=== PATIENT | female | born 1965 | race Two or more races ===

== ENCOUNTER 2021-02-18 10:05 | Outpatient (CLI) | payer MEDICARE, OTHER | END 2021-02-18 23:59 | disposition home health service (06) | LOC: WOU 10:05 | PROVIDERS: ATTEND Surgery | DX: L89.894 Pressure ulcer of other site, stage 4 (principal); M62.3 Immobility syndrome (paraplegic); Z79.82 Long term (current) use of aspirin; I10 Essential (primary) hypertension | CPT/HCPCS: 11042 ==

== ENCOUNTER 2021-03-18 09:45 | Outpatient (CLI) | payer MEDICARE, OTHER ==
[2021-03-18] MEDS ORDERED: LIDOCAINE SOLN 4% 50 ML BOTTLE ONE (10:03)
== END 2021-03-18 23:59 | disposition home health service (06) ==
LOC: WOU 09:45
PROVIDERS: ATTEND Specialist
DX: L89.894 Pressure ulcer of other site, stage 4 (principal); G80.9 Cerebral palsy, unspecified; G40.909 Epilepsy, unspecified, not intractable, without status epilepticus; Z99.3 Dependence on wheelchair
CPT/HCPCS: 17250; A6209

== ENCOUNTER 2021-03-25 10:00 | Outpatient (CLI) | payer MEDICARE, OTHER | END 2021-03-25 23:59 | disposition home health service (06) | LOC: WOU 10:00 | PROVIDERS: ATTEND Specialist | DX: L89.894 Pressure ulcer of other site, stage 4 (principal); G40.309 Generalized idiopathic epilepsy and epileptic syndromes, not intractable, without status epilepticus; I10 Essential (primary) hypertension; Z79.82 Long term (current) use of aspirin; Z99.3 Dependence on wheelchair | CPT/HCPCS: A6209; G0463 ==

== ENCOUNTER 2021-04-01 10:30 | Outpatient (CLI) | payer MEDICARE, OTHER | END 2021-04-01 23:59 | disposition home health service (06) | LOC: WOU 10:30 | PROVIDERS: ATTEND Specialist | DX: L89.894 Pressure ulcer of other site, stage 4 (principal); G40.309 Generalized idiopathic epilepsy and epileptic syndromes, not intractable, without status epilepticus; S90.31XD Contusion of right foot, subsequent encounter; X58.XXXD Exposure to other specified factors, subsequent encounter; Z79.82 Long term (current) use of aspirin | CPT/HCPCS: 17250; A6209 ==

== ENCOUNTER 2021-04-22 11:00 | Outpatient (CLI) | payer MEDICARE, OTHER ==
[2021-04-22] MEDS ORDERED: LIDOCAINE SOLN 4% 50 ML BOTTLE ONE (11:09)
[2021-04-22] MEDS ORDERED: SILVER NITRATE APPLICATOR 1 EA BOX ONE (11:31)
== END 2021-04-22 23:59 | disposition home health service (06) ==
LOC: WOU 11:00
PROVIDERS: ATTEND Specialist
DX: L89.894 Pressure ulcer of other site, stage 4 (principal); Z99.3 Dependence on wheelchair; Z79.82 Long term (current) use of aspirin
CPT/HCPCS: 17250; 73630; A6209

== ENCOUNTER 2021-05-13 10:00 | Outpatient (CLI) | payer MEDICARE, OTHER ==
[2021-05-13] MEDS ORDERED: LIDOCAINE SOLN 4% 50 ML BOTTLE ONE (10:39)
== END 2021-05-13 23:59 | disposition home health service (06) ==
LOC: WOU 10:00
PROVIDERS: ATTEND Specialist
DX: L89.894 Pressure ulcer of other site, stage 4 (principal); B36.9 Superficial mycosis, unspecified; L97.511 Non-pressure chronic ulcer of other part of right foot limited to breakdown of skin; Z99.3 Dependence on wheelchair; Z79.82 Long term (current) use of aspirin
CPT/HCPCS: G0463

== ENCOUNTER 2021-05-27 09:45 | Outpatient (CLI) | payer MEDICARE, OTHER ==
[2021-05-27] MEDS ORDERED: LIDOCAINE SOLN 4% 50 ML BOTTLE ONE (09:55)
[2021-05-27] MEDS ORDERED: SILVER NITRATE APPLICATOR 1 EA BOX ONE (10:15)
== END 2021-05-27 23:59 | disposition home health service (06) ==
LOC: WOU 09:45
PROVIDERS: ATTEND Specialist
DX: L89.894 Pressure ulcer of other site, stage 4 (principal); B36.9 Superficial mycosis, unspecified; L97.511 Non-pressure chronic ulcer of other part of right foot limited to breakdown of skin; Z79.82 Long term (current) use of aspirin
CPT/HCPCS: 17250

== ENCOUNTER 2021-07-15 10:00 | Outpatient (CLI) | payer MEDICARE, OTHER | END 2021-07-15 23:59 | disposition home health service (06) | LOC: WOU 10:00 | PROVIDERS: ATTEND Specialist | DX: L89.894 Pressure ulcer of other site, stage 4 (principal); L97.511 Non-pressure chronic ulcer of other part of right foot limited to breakdown of skin; B36.9 Superficial mycosis, unspecified; Z79.82 Long term (current) use of aspirin | CPT/HCPCS: A6209; G0463 ==

== ENCOUNTER 2021-10-28 10:00 | Outpatient (CLI) | payer MEDICARE, OTHER ==
[2021-10-28] MEDS ORDERED: LIDOCAINE SOLN 4% 50 ML BOTTLE ONE (10:01)
== END 2021-10-28 23:59 | disposition home health service (06) ==
LOC: WOU 10:00
PROVIDERS: ATTEND Specialist
DX: L89.894 Pressure ulcer of other site, stage 4 (principal); T80.89XA Other complications following infusion, transfusion and therapeutic injection, initial encounter; L98.492 Non-pressure chronic ulcer of skin of other sites with fat layer exposed; B36.9 Superficial mycosis, unspecified; G40.909 Epilepsy, unspecified, not intractable, without status epilepticus; T65.91XS Toxic effect of unspecified substance, accidental (unintentional), sequela; I67.82 Cerebral ischemia; I10 Essential (primary) hypertension; E78.5 Hyperlipidemia, unspecified; E07.9 Disorder of thyroid, unspecified; Z93.1 Gastrostomy status; Z86.16 Personal history of COVID-19
CPT/HCPCS: 11042; G0463; A6209

== ENCOUNTER 2021-11-04 10:14 | Outpatient (CLI) | payer MEDICARE, OTHER ==
[2021-11-04] MEDS ORDERED: LIDOCAINE SOLN 4% 50 ML BOTTLE ONE (10:16)
== END 2021-11-04 23:59 | disposition home health service (06) ==
LOC: WOU 10:14
PROVIDERS: ATTEND Specialist
DX: L89.894 Pressure ulcer of other site, stage 4 (principal); T80.89XA Other complications following infusion, transfusion and therapeutic injection, initial encounter; L98.492 Non-pressure chronic ulcer of skin of other sites with fat layer exposed; I10 Essential (primary) hypertension; I67.82 Cerebral ischemia; E78.5 Hyperlipidemia, unspecified; E07.9 Disorder of thyroid, unspecified; G40.909 Epilepsy, unspecified, not intractable, without status epilepticus; Z93.1 Gastrostomy status; Z86.16 Personal history of COVID-19
CPT/HCPCS: G0463; A6209

== ENCOUNTER 2021-11-11 10:20 | Outpatient (CLI) | payer MEDICARE, OTHER ==
[2021-11-11] MEDS ORDERED: LIDOCAINE SOLN 4% 50 ML BOTTLE ONE (10:26)
== END 2021-11-11 23:59 | disposition home health service (06) ==
LOC: WOU 10:20
PROVIDERS: ATTEND Specialist
DX: L89.894 Pressure ulcer of other site, stage 4 (principal); T80.89XD Other complications following infusion, transfusion and therapeutic injection, subsequent encounter; L98.492 Non-pressure chronic ulcer of skin of other sites with fat layer exposed; L89.892 Pressure ulcer of other site, stage 2; L89.896 Pressure-induced deep tissue damage of other site; I10 Essential (primary) hypertension; E78.5 Hyperlipidemia, unspecified; E07.9 Disorder of thyroid, unspecified; G40.909 Epilepsy, unspecified, not intractable, without status epilepticus; Z93.1 Gastrostomy status; B36.9 Superficial mycosis, unspecified; Z79.82 Long term (current) use of aspirin
CPT/HCPCS: G0463; A6209

== ENCOUNTER 2021-11-18 10:10 | Outpatient (CLI) | payer MEDICARE, OTHER ==
[2021-11-18] MEDS ORDERED: LIDOCAINE SOLN 4% 50 ML BOTTLE ONE (11:02)
== END 2021-11-18 23:59 | disposition home health service (06) ==
LOC: WOU 10:10
PROVIDERS: ATTEND Specialist
DX: L89.894 Pressure ulcer of other site, stage 4 (principal); T80.89XA Other complications following infusion, transfusion and therapeutic injection, initial encounter; L98.492 Non-pressure chronic ulcer of skin of other sites with fat layer exposed; L89.896 Pressure-induced deep tissue damage of other site; B36.9 Superficial mycosis, unspecified; L89.892 Pressure ulcer of other site, stage 2; L89.891 Pressure ulcer of other site, stage 1; E78.5 Hyperlipidemia, unspecified; I10 Essential (primary) hypertension; E07.9 Disorder of thyroid, unspecified; G40.909 Epilepsy, unspecified, not intractable, without status epilepticus; Z93.1 Gastrostomy status; Z79.82 Long term (current) use of aspirin
CPT/HCPCS: 17250 ×3; A6209 ×2

== ENCOUNTER 2021-12-02 09:15 | Outpatient (CLI) | payer MEDICARE, OTHER ==
[2021-12-02] MEDS ORDERED: LIDOCAINE SOLN 4% 50 ML BOTTLE ONE (09:20)
[2021-12-02] MEDS ORDERED: SILVER SULFADIAZINE CREAM 25 GM TUBE ONE (10:03)
== END 2021-12-02 23:59 | disposition home health service (06) ==
LOC: WOU 09:15
PROVIDERS: ATTEND Specialist
DX: L89.894 Pressure ulcer of other site, stage 4 (principal); L89.892 Pressure ulcer of other site, stage 2; L89.896 Pressure-induced deep tissue damage of other site; B36.9 Superficial mycosis, unspecified; L98.492 Non-pressure chronic ulcer of skin of other sites with fat layer exposed; T80.89XS Other complications following infusion, transfusion and therapeutic injection, sequela; E78.5 Hyperlipidemia, unspecified; E07.9 Disorder of thyroid, unspecified; I10 Essential (primary) hypertension; G40.909 Epilepsy, unspecified, not intractable, without status epilepticus; Z93.1 Gastrostomy status; Z79.82 Long term (current) use of aspirin
CPT/HCPCS: 11042; 87077; 87075; 87070; 87186 ×2; 17250 ×3; A6209

== ENCOUNTER 2021-12-16 09:30 | Outpatient (CLI) | payer MEDICARE, OTHER ==
[2021-12-16] MEDS ORDERED: LIDOCAINE SOLN 4% 50 ML BOTTLE ONE (10:19)
[2021-12-16] MEDS ORDERED: CLOTRIMAZOLE 1% 15 GM TUBE TP ONE (10:39)
[2021-12-16] MEDS ORDERED: SILVER SULFADIAZINE CREAM 25 GM TUBE ONE (10:39)
== END 2021-12-16 23:59 | disposition home health service (06) ==
LOC: WOU 09:30
PROVIDERS: ATTEND Specialist
DX: L89.894 Pressure ulcer of other site, stage 4 (principal); L89.892 Pressure ulcer of other site, stage 2; L89.896 Pressure-induced deep tissue damage of other site; L98.492 Non-pressure chronic ulcer of skin of other sites with fat layer exposed; T80.89XS Other complications following infusion, transfusion and therapeutic injection, sequela; B36.9 Superficial mycosis, unspecified; I10 Essential (primary) hypertension; E78.5 Hyperlipidemia, unspecified; E07.9 Disorder of thyroid, unspecified; G40.909 Epilepsy, unspecified, not intractable, without status epilepticus; Z93.1 Gastrostomy status; Z79.82 Long term (current) use of aspirin
CPT/HCPCS: G0463; A6209 ×2